=== PATIENT | male | born 1960 | race Caucasian/White ===

== ENCOUNTER 2020-10-14 11:47 | Emergency (ER) | payer OTHER, SELFPAY ==
[2020-10-14] VITALS (9 sets, daily range): BP systolic 133–159; BP diastolic 74–108; PULSE 71–128; RESP 16–18; TEMP 36.5–36.8; O2SAT 97–99; BMI 31.3
--- NOTE | 2020-10-14 12:05 | EKG12_ITS ---
Test Reason : [facility] Blood Pressure : / mmHG Vent. Rate : 108 BPM Atrial Rate : 108 BPM P-R Int : 148 ms QRS Dur : 088 ms QT Int : 354 ms P-R-T Axes : 035 009 029 degrees QTc Int : 474 ms Sinus tachycardia Otherwise normal ECG Confirmed by KYLE DICKERSON, WILIAN ([id number]), dictionary editor CHRISTINA CHRISTIANSEN ([id number]) on 10/18/2020 9:41:46 AM Referred By: DORIS Confirmed By:WILIAN WRIGHT MD
--- NOTE | 2020-10-14 12:06 | CT_ITS ---
STUDY: CT BRAIN WITHOUT CONTRAST REASON FOR EXAM: Male, 59 years old. Change in mental status, medical clearance for psych facility. RADIATION DOSAGE (If Supplied By Facility): CTDIvol = ( 44.99 ) mGy, DLP = ( 745.49 ) mGycm TECHNIQUE: Transaxial CT imaging of the brain was performed without administration of intravenous contrast material. Individualized dose optimization techniques were used for this CT. COMPARISON: No relevant priors. FINDINGS: Normal soft tissue structures. Normal calvarium. Normal size ventricles and extra-axial spaces for the patient''s age. Normal white matter tracts of the cerebral hemispheres. Normal basal ganglia and thalami. Normal brainstem. Normal cerebellum. There is no intracranial hemorrhage. There are no findings of an acute ischemic infarction. Normal visualized paranasal sinuses. CT/Brain/Head without Contrast IMPRESSION: Normal unenhanced CT scan of the brain. Electronically Signed: Zacarias Gardner, at 13:23 EST , Service support ,
[2020-10-14 12:29] LABS: Red Blood Cells-Urine 0 SEEN /hpf (0-5); Squamous Epithelial Cells - UA 0 SEEN /hpf (0-5)
[2020-10-14 12:37] LABS: Color, Urine Yellow (Yellow); Glucose, Dipstick Normal (Normal); Ketone-Dipstick 5 mg/dl (Negative); Leukocyte Esterase-Dipstick 25 /ul (Negative); Nitrite-Dipstick Negative (Negative); Occult Blood-Urine 10 /ul (Negative); Protein-Dipstick 30 mg/dl (Negative); Urine Bilirubin Dipstick Negative (Negative); Urine Clarity Clear (Clear); Urine Urobilinogen 1 mg/dl (Normal)
--- NOTE | 2020-10-14 12:45 | CM.ED ---
SOCIAL WORK Collaboration with Dr. Shirley, protein specialist-María, patient and daughter/court ordered guardian, Kev Weeks. Patient presents to ER with court order for [facility]. Patient to be medically cleared and evaluated by Crisis. Copy of court orders added to chart. Daughter/Guardian wishes to stay with patient in room for a few hours. Daughter educated to stay in room, wear mask and unable to come in and out of department. Daughter verbalized understanding. Staff aware. Crisis updated patient in department and will call once medically cleared for assessment. Abrahan Bolton, DIRECTOR OF ARCHIVES, WIRE COINER
[2020-10-14 12:48] LABS: Bacteria 2+ /hpf (None Seen); Mucous, Urine 1+ /hpf (<or=2+); White Blood Cells 0-5 SEEN /hpf (0-5)
[2020-10-14 12:49] LABS: Hyaline Cast 0-5 SEEN /lpf (0-5)
[2020-10-14 12:58] LABS: Absolute Lymphocyte Count 1.45 X10^3/uL (0.83-4.51); Basophil# 0.05 X10^3/uL; Basophil% 0.5 % (0-1); Eosinophil# 0.04 X10^3/uL; Eosinophils% 0.4 % (0-5); Hematocrit 50.7 % (40-54); Hemoglobin 16.9 g/dL (13.0-16.5); Lymphocyte # 1.45 X10^3/ul (4.0); Lymphocyte % 13.9 % (19-41); Mean Corp Hgb Conc 33.3 g/dL (32-36); Mean Corpuscular Hgb 29.3 pg (27.0-32.0); Mean Platelet Vol. 9.6 fl (6.2-12.0); Monocyte# 0.91 X10^3/uL; Monocyte% 8.7 % (0-10); NRBC Flagged by Analyzer 0 % (0-5); Neutrophil # 7.95 X10^3/uL (2.7-7.7); Neutrophil % 76.2 % (47-70); Platelet Count 284 K/mm3 (150-450); RBC Distribution Width SD 41.9 fl (35.1-43.9); Red Blood Count 5.76 M/mm3 (4.6-6.2); White Blood Count 10.4 K/mm3 (4.4-11.0)
[2020-10-14 13:13] LABS: Amphetamine Urine VISTA NEGATIVE (<1000 ng/mL); Barbiturate Urine VISTA NEGATIVE (< 200 ng/mL); Benzodiazepine Urine VISTA NEGATIVE (< 200 ng/mL); Cocaine Urine VISTA NEGATIVE (< 300 ng/mL); Ecstacy Urine VISTA NEGATIVE (< 500 ng/mL); Methadone Urine VISTA NEGATIVE (< 300 ng/mL); PCP Urine VISTA NEGATIVE (< 25 ng/mL); THC Urine VISTA NEGATIVE (< 50 ng/mL); Vista UDS pH Range 5
[2020-10-14 13:18] LABS: ALB/GLOB Ratio 1.2 RATIO (0.9-2.4); AST(SGOT) 20 U/L (15-37); Alanine Aminotransfer ALT/SGPT 35 U/L (16-61); Albumin, Serum 4.2 g/dL (3.2-5.0); Alkaline Phosphatase 103 U/L (45-117); Anion Gap 5 (5-15); BUN 19 mg/dL (7-18); BUN/Creat Ratio 15.3 RATIO (10-20); Calcium,Total 9.2 mg/dL (8.5-10.1); Chloride 108 mmol/L (98-107); Creatinine, Serum 1.24 mg/dL (0.70-1.30); EST Glomerular Filtration Rate 63 mL/min (>60); Est Glom Filt Rate - Afr Amer 76 mL/min (>60); Estimated Creatinine Clearance 58.49 ml/min; Globulin 3.6 g/dL (2.2-4.2); Glucose 110 mg/dL (74-106); Potassium 3.8 mmol/L (3.5-5.1); Protein, Total 7.8 g/dL (6.4-8.2); Sodium Level 140 mmol/L (136-145)
[2020-10-14 13:20] LABS: Alcohol, Blood (Medical)-Serum < 3.0 mg/dL
[2020-10-14 13:41] LABS: Probe Check PASS; Specimen Processing Control PASS
--- NOTE | 2020-10-14 13:48 | ED.DCSUM_ITS ---
- ER Visit Summary Date of Service: 10/14/20 Chief Complaint: [Requesting medical clearance for transfer to psychiatric facility] History of Present Illness: The patient is a 59 M [presents to the emergency department with his daughter who has power of civil attorney. Patient apparently has been court ordered to go to a psychiatric facility for inpatient admission and treatment of ongoing psychosis. Patient apparently had multiple admissions for psychosis and does well while medicated but then apparently gets discharged and he does not take his medications. Per daughter patient has been hallucinating and is been delusional and paranoid. She discussed with crisis her father's condition and they were advised to come to the emergency department for medical clearance to psychiatric facility. Patient denies being suicidal or homicidal. He does live alone. To me he denied auditory or visual hallucinations. Patient does have history of hypertension, diabetes, high cholesterol. He currently does not take any medications. Denies recent illness. Patient states that he lost sense of taste and smell about a year ago. He has had no COVID-19 symptoms or exposures known.] Physical Examination: [HEENT-PERRLA, EOMI. Cranial nerves II through XII grossly intact. TMs clear. Mucous membranes moist. No adenopathy. Patient cooperative in the department. Cardiovascular-regular rate and rhythm without murmur or ectopy Lungs-clear to auscultation, chest wall stable without crepitus or subcu emphysema Abdomen-normoactive bowel sounds, soft, nontender, no rebound or rigidity, no peritoneal signs. Extremities-intact ?4, normal range of motion, normal pulses, atraumatic] Test Results: [CBC with differential obtained showed a white count 10.4, hemoglobin 16.9, hematocrit 51, placed 284. Chemistries unremarkable. LFTs normal. Urinalysis normal. Toxicology screen was negative. Alcohol was less than 3. COVID-[address] scan of the brain without contrast was normal. G obtained arrival showed normal sinus rhythm with no acute ST segment changes noted.] Emergency Department Course and Treatment: [Patient was evaluated by health and social care teacher and will discuss case with crisis to arrange for placement of patient to psychiatric facility] Treatment Plan: [Transfer to psychiatric facility] Disposition: [Transfer] Impression: [Psychosis-decompensated] This note was generated with [employer] software. It may contain incorrect words, spelling, and punctuation that were not noted in review of the chart prior to signing ED Disposition - Plan for ED Patient: Referrals: Care Physician,No Primary [Primary Care Provider] -
--- NOTE | 2020-10-14 14:08 | CM.ED ---
SOCIAL WORK Per Dr. Shirley, patient is medically cleared. All clinical information and court orders faxed to Crisis at this time. Ofelia with Crisis updated. Abrahan Bolton, ASSEMBLY INSTRUCTIONS WRITER, IMPLEMENTATION SPECIALIST
--- NOTE | 2020-10-14 15:16 | CM.ED ---
SOCIAL WORK Received call from Ofelia with Crisis. Per Ofelia, spoke with Carissa Booker who reports court order for [facility] must go straight to [facility] legal department. Ofelia provided this worker with legal department development representative at [facility], Dena Coyle. Call to Dena, reviewed probate orders. Dena requesting all clinical information and orders be faxed to [facility]'s CNO department. All information faxed at this time. Plan: Referral pending at [facility] Abrahan Bolton MSW, RD PROJECT MANAGER
--- NOTE | 2020-10-14 15:20 | CM.ED ---
SOCIAL WORK Received call from Ofelia with Crisis. Ofelia reports spoke with [facility] and will be calling in shortly to complete evaluation with patient. Staff lea. Abrahan Bolton, MACHINE PRINTER, INTERIOR DESIGN PROFESSOR
--- NOTE | 2020-10-14 15:34 | CM.ED ---
SOCIAL WORK Ofelia with Crisis on phone with patient and patient's guardian. Abrahan Bolton, FEATHER MIXER, SENIOR STRATEGY ANALYST
--- NOTE | 2020-10-14 22:47 | ED.RN ---
DAUGHTER IN ROOM, SPOKE TO THIS RN, VERIFIED CORRECT PHONE NUMBER ON FILE. DAUGHTER LEAVING FOR NIGHT. PT CALM AND COOPERATIVE AT THIS TIME, DENIES NEEDS.
[2020-10-15] VITALS (10 sets, daily range): BP systolic 115–136; BP diastolic 79–105; PULSE 78–94; RESP 16–20; TEMP 36.7; O2SAT 94–99
--- NOTE | 2020-10-15 11:00 | CM.ED ---
SOCIAL WORK Spoke with Ofeila from Crisis, awaiting bed at [facility] at this time. Abrahan Bolton, CONSTRUCTION QUALITY CONTROL MANAGER, SURVEILLANCE ANALYST
--- NOTE | 2020-10-15 13:42 | CM.ED ---
SOCIAL WORK Per Ofelia with Crisis. Patient is #2 on wait list at [facility]. [facility] will be calling [facility] later today to discuss wait list and possibility of a bed becoming available this evening/weekend. Call to patient's daughter/guardian ([phone]) to update on the above. Abrahan Bolton MSW, OPTICAL MANAGER
--- NOTE | 2020-10-15 16:29 | NURSING ---
CALLED CRISIS ABOUT PATIENT, LEFT MESSAGE FOR THEM TO CALL ER
--- NOTE | 2020-10-15 16:33 | NURSING ---
NO BED TODAY AT [facility]
--- NOTE | 2020-10-15 17:06 | CM.ED ---
SOCIAL WORK Call from Ofelia with Crisis. He [place], spoke with Nai from [facility] and informed will have bed for patient tomorrow. Patient, daughter/guardian and staff updated. Direct Response Consultant to set up transport upon discharge. Abrahan Bolton, MUNICIPAL MAINTENANCE WORKER, MATERIAL SPECIALIST
[2020-10-16] VITALS (11 sets, daily range): BP systolic 108–125; BP diastolic 62–96; PULSE 80–98; RESP 14–18; O2SAT 96–98
--- NOTE | 2020-10-16 13:06 | CM.ED ---
Social Work Telephone call from Brayan, Abigail. Patient has been accepted by Dr. Stoner. Nurse to call report to [phone] xt: [phone]. [facility] to set up transportation per Abigail due to patient having insurance. Updated medical team. Telephone call to patient daughterKev. no answer. voicemail left. Cheko Whitney MSW, FABIEN
== END 2020-10-16 15:45 ==
LOC: ED 12:22
PROVIDERS: Emergency Provider Emergency Medicine
DX: F29 Unspecified psychosis not due to a substance or known physiological condition (principal)
CPT/HCPCS: 70450; 80053; 80307; 80320; 81001; 85025; 87635; 93005; 99281; 99285; G0480; U0002

== ENCOUNTER → 2021-07-21 16:32 | Outpatient (CLI) | payer OTHER, SELFPAY ==
[2021-07-21 17:09] LABS: Absolute Lymphocyte Count 1.77 X10^3/uL (0.83-4.51); Absolute Neutrophil Count 5.6 X10^3/uL (2.0-7.7); Basophil# 0.04 X10^3/uL; Basophil% 0.5 % (0-1); Eosinophil# 0.09 X10^3/uL; Eosinophils% 1.1 % (0-5); Hematocrit 48.4 % (40-54); Hemoglobin 16.3 g/dL (13.0-16.5); Lymphocyte # 1.77 X10^3/ul (0.83-4.51); Lymphocyte % 21.7 % (19-41); Mean Corp Hgb Conc 33.7 g/dL (32-36); Mean Corpuscular Hgb 29.2 pg (27.0-32.0); Mean Corpuscular Volume 86.7 fL (80-94); Mean Platelet Vol. 9.6 fl (6.2-12.0); Monocyte# 0.61 X10^3/uL; Monocyte% 7.5 % (0-10); NRBC Flagged by Analyzer 0 % (0-5); Neutrophil # 5.62 X10^3/uL (2.7-7.7); Neutrophil % 68.8 % (47-70); Platelet Count 241 K/mm3 (150-450); RBC Distribution Width CV 13.2 % (11.6-14.6); RBC Distribution Width SD 41.1 fl (35.1-43.9); Red Blood Count 5.58 M/mm3 (4.6-6.2); White Blood Count 8.2 K/mm3 (4.4-11.0)
[2021-07-21 17:41] LABS: ALB/GLOB Ratio 1.1 RATIO (0.9-2.4); AST(SGOT) 27 U/L (15-37); Alanine Aminotransfer ALT/SGPT 43 U/L (16-61); Alkaline Phosphatase 95 U/L (45-117); Anion Gap 6 (5-15); BUN 17 mg/dL (7-18); BUN/Creat Ratio 16.8 RATIO (10-20); Calcium,Total 8.6 mg/dL (8.5-10.1); Chloride 107 mmol/L (98-107); Creatinine, Serum 1.01 mg/dL (0.70-1.30); EST Glomerular Filtration Rate 79 mL/min (>60); Est Glom Filt Rate - Afr Amer 96 mL/min (>60); Globulin 3.6 g/dL (2.2-4.2); Glucose 85 mg/dL (74-106); PSA,Total - Annual Screen 3.25 ng/mL (0.00-4.00); Potassium 4.2 mmol/L (3.5-5.1); Protein, Total 7.6 g/dL (6.4-8.2); Sodium Level 140 mmol/L (136-145); Thyroid Stim Hormone (TSH) 0.76 uIU/mL (0.358-3.74)
[2021-07-22 11:01] LABS: Hepatitis C Antibody Non-Reactive (Nonreactive)
== END ==
PROVIDERS: PCP Family Medicine Geriatric Medicine; Visit Provider Family Medicine Geriatric Medicine
DX: R53.83 Other fatigue (principal); Z12.5 Encounter for screening for malignant neoplasm of prostate; Z13.89 Encounter for screening for other disorder
CPT/HCPCS: 36415; 80053; 84153; 84443; 85025; 86803; G0103